=== PATIENT | female | born 1975 | race American Indian/Alaskan Native ===

== ENCOUNTER 2021-01-19 02:47 | Emergency (ER) | payer SELFPAY ==
[2021-01-19 03:13] VITALS: BP 126/69
--- NOTE | 2021-01-19 03:41 | Emergency Department Report ---
ED General Adult HPI - General Chief complaint: Allergic Reaction Stated complaint: ALLERGIC REACTION Source: patient Mode of arrival: Ambulatory Limitations: No Limitations - History of Present Illness Initial comments: Patient is a 45-year-old -[place] female with a history of morbid obesity, HIV, hypertension and eczema who presents to the ED with acute exacerbation of her chronic eczematous rashes on bilateral dorsal hands and forearms with persistent itching for the last 1 week after she went on vacation and went swimming on a chlorinated pool about a week ago. Patient states that she has been using [id number] medications with no relief and that in the last 3 days she noticed that the rashes were beginning to weep purulent discharge and she decided come to the ED for evaluation. Patient denies fever, chills, nausea, vomiting, dizziness, syncope, chest pain or shortness of breath, cough, headache, change in vision or diarrhea or abdominal pain. MD Complaint: Itchy dry ulcerated weeping rashes diffusely -: Sudden, week(s) (1) Location: upper extremity (Bilateral hands) Radiation: non-radiation Severity scale (0 -10): 7 Quality: burning, aching, sharp, other (Itchy) Consistency: constant Improves with: none Worsens with: none Associated Symptoms: denies other symptoms, rash (Diffuse bilateral dorsal hand ulcerated erythematous painful and itchy rashes). denies: cough, diaphoresis, fever/chills, headaches, loss of appetite, malaise, nausea/vomiting, seizure Treatments Prior to Arrival: none - Related Data Previous Rx's Medication Instructions Recorded Last Taken Type Elviteg/Cob/Emtri/Tenofo Disop 1 each PO DAILY #30 tablet 07/19/15 Unknown Rx [Stribild Tablet] Famotidine [Pepcid] 20 mg PO BID #60 tablet 07/19/15 Unknown Rx Metoclopramide [Reglan TAB] 10 mg PO Q6H PRN #30 tablet 07/19/15 Unknown Rx Sulfamethoxazole/Trimethoprim 1 each PO BID #20 tablet 07/19/15 Unknown Rx [Bactrim DS TAB] Valacyclovir HCl [Valtrex] 1,000 mg PO DAILY #30 tablet 07/19/15 Unknown Rx Azithromycin [Zithromax Z-PROMISE] 1 dose PO DAILY 5 Days tab 03/25/17 Unknown Rx Benzonatate [Tessalon Perles] 100 mg PO Q8HR PRN #30 capsule 03/25/17 Unknown Rx traMADoL [Ultram 50 MG tab] 50 mg PO Q6HR PRN #20 tablet 03/25/17 Unknown Rx Ibuprofen [Motrin] 800 mg PO Q8HR PRN #30 tablet 01/19/21 Unknown Rx Triamcinolone Acetonide 1 applic TP BID #1 oint...g. 01/19/21 Unknown Rx [Triamcinolone Acetonide Oint 0.5%] cephALEXin [Keflex] 500 mg PO Q6HR #40 capsule 01/19/21 Unknown Rx hydrOXYzine PAMOATE [Vistaril] 50 mg PO Q8HR PRN #30 capsule 01/19/21 Unknown Rx predniSONE [Deltasone] 60 mg PO QDAY #15 tab 01/19/21 Unknown Rx traMADoL [Ultram] 50 mg PO Q6HR PRN #12 tablet 01/19/21 Unknown Rx Allergies Allergy/AdvReac Type Severity Reaction Status Date / Time aspirin Allergy Anaphylaxis Verified 01/19/21 03:08 ED Review of Systems ROS: Stated complaint: ALLERGIC REACTION Other details as noted in HPI Constitutional: denies: chills, fever Eyes: denies: eye pain, eye discharge, vision change ENT: denies: ear pain, throat pain Respiratory: denies: cough, shortness of breath, wheezing Cardiovascular: denies: chest pain, palpitations Endocrine: no symptoms reported Gastrointestinal: denies: abdominal pain, nausea, vomiting, diarrhea Genitourinary: denies: urgency, dysuria, discharge Musculoskeletal: arthralgia (Bilateral hand pain due to itchy mild erythematous ulcerated weeping rashes). denies: back pain, joint swelling Skin: rash (Mild erythematous dry itchy ulcerated rashes with discharge). denies: lesions Neurological: denies: headache, weakness, paresthesias Psychiatric: denies: anxiety, depression Hematological/Lymphatic: denies: easy bleeding, easy bruising ED Past Medical Hx - Past Medical History Hx Hypertension: Yes Hx HIV: Yes Additional medical history: PCP; eczema - Surgical History Additional Surgical History: FIBROIDS, TUBAL LIGATION - Social History Smoking Status: Current Every Day Smoker Substance Use Type: None - Medications Home Medications: Home Medications Medication Instructions Recorded Confirmed Last Taken Type Elviteg/Cob/Emtri/Tenofo Disop 1 each PO DAILY #30 tablet 07/19/15 Unknown Rx [Stribild Tablet] Famotidine [Pepcid] 20 mg PO BID #60 tablet 07/19/15 Unknown Rx Metoclopramide [Reglan TAB] 10 mg PO Q6H PRN #30 tablet 07/19/15 Unknown Rx Sulfamethoxazole/Trimethoprim 1 each PO BID #20 tablet 07/19/15 Unknown Rx [Bactrim DS TAB] Valacyclovir HCl [Valtrex] 1,000 mg PO DAILY #30 tablet 07/19/15 Unknown Rx Azithromycin [Zithromax Z-PROMISE] 1 dose PO DAILY 5 Days tab 03/25/17 Unknown Rx Benzonatate [Tessalon Perles] 100 mg PO Q8HR PRN #30 capsule 03/25/17 Unknown Rx traMADoL [Ultram 50 MG tab] 50 mg PO Q6HR PRN #20 tablet 03/25/17 Unknown Rx Ibuprofen [Motrin] 800 mg PO Q8HR PRN #30 tablet 01/19/21 Unknown Rx Triamcinolone Acetonide 1 applic TP BID #1 oint...g. 01/19/21 Unknown Rx [Triamcinolone Acetonide Oint 0.5%] cephALEXin [Keflex] 500 mg PO Q6HR #40 capsule 01/19/21 Unknown Rx hydrOXYzine PAMOATE [Vistaril] 50 mg PO Q8HR PRN #30 capsule 01/19/21 Unknown Rx predniSONE [Deltasone] 60 mg PO QDAY #15 tab 01/19/21 Unknown Rx traMADoL [Ultram] 50 mg PO Q6HR PRN #12 tablet 01/19/21 Unknown Rx ED Physical Exam - General Limitations: No Limitations General appearance: alert, in no apparent distress - Head Head exam: Present: atraumatic, normocephalic, normal inspection - Eye Eye exam: Present: normal appearance, PERRL, EOMI Pupils: Present: normal accommodation - ENT ENT exam: Present: normal exam, normal orophraynx, mucous membranes moist, TM's normal bilaterally, normal external ear exam - Neck Neck exam: Present: normal inspection, full ROM - Respiratory Respiratory exam: Present: normal lung sounds bilaterally. Absent: respiratory distress, wheezes, rales, chest wall tenderness, accessory muscle use, prolonged expiratory - Cardiovascular Cardiovascular Exam: Present: regular rate, normal rhythm, normal heart sounds. Absent: systolic murmur, diastolic murmur, rubs, gallop - GI/Abdominal GI/Abdominal exam: Present: soft, normal bowel sounds. Absent: tenderness, guarding, rebound, hyperactive bowel sounds, hypoactive bowel sounds, organomegaly - Extremities Exam Extremities exam: Present: normal inspection, full ROM, tenderness (Palpable moderately tender bilateral dorsal hand and forearm pain due to mildly erythematous ulcerated maculopapular weeping rashes), normal capillary refill - Back Exam Back exam: Present: normal inspection, full ROM. Absent: tenderness, CVA tenderness (R), CVA tenderness (L), muscle spasm, vertebral tenderness - Neurological Exam Neurological exam: Present: alert, oriented X3, CN II-XII intact, normal gait, reflexes normal - Psychiatric Psychiatric exam: Present: normal affect, normal mood, anxious - Skin Skin exam: Present: warm, dry, intact, rash (Mild erythematous ulcerated weeping rashes with localized tenderness on bilateral dorsal hands and forearms), erythema ED Course Vital Signs 01/19/21 01/19/21 03:11 03:12 Temperature 98.1 F Pulse Rate 95 H Blood Pressure 126/69 O2 Sat by Pulse 98 Oximetry ED Medical Decision Making - Medical Decision Making This is a 45-year-old -[place] female with a history of morbid obesity, HIV, hypertension and eczema who presents to the ED with acute exacerbation of her chronic eczematous rashes on bilateral dorsal hands and forearms with persistent itching for the last 1 week after she went on vacation and went swimming on a chlorinated pool about a week ago. Patient states that she has been using [id number] medications with no relief and that in the last 3 days she noticed that the rashes were beginning to weep purulent discharge and she decided come to the ED for evaluation. In the ED, patient is alert and oriented x3 and is not in any distress. Patient was treated for pain in the ED and on reevaluation, patient's pain is well controlled medication. Patient will discharge home on pain medications and prescription of triamcinolone acetonide ointment and was advised to follow-up with her primary care physician in 7 to 10 days for reevaluation. Patient advised return to the ED immediately if symptoms get worse. - Differential Diagnosis Eczema; cellulitis; irritant dermatitis; allergic reaction Critical care attestation.: If time is entered above; I have spent that time in minutes in the direct care of this critically ill patient, excluding procedure time. ED Disposition Clinical Impression: Chronic eczema of hand, Itching with irritation, Cellulitis of dorsum of hand Disposition: 01 HOME / SELF CARE / HOMELESS Is pt being admited?: No Does the pt Need Aspirin: No Condition: Stable Instructions: Pruritus, Eczema, Cellulitis, Adult, [id number] Additional Instructions: Take medication with food, drink plenty of fluids and follow-up with your primary care physician in 7 to 10 days for reevaluation. Return to the ED immediately if symptoms get worse. Prescriptions: predniSONE [Deltasone] 60 mg PO QDAY #15 tab cephALEXin [Keflex] 500 mg PO Q6HR #40 capsule Ibuprofen [Motrin] 800 mg PO Q8HR PRN #30 tablet PRN Reason: Pain , Severe (7-10) Triamcinolone Acetonide [Triamcinolone Acetonide Oint 0.5%] 1 applic TP BID #1 oint...g. traMADoL [Ultram] 50 mg PO Q6HR PRN #12 tablet PRN Reason: Pain hydrOXYzine PAMOATE [Vistaril] 50 mg PO Q8HR PRN #30 capsule PRN Reason: Itching Referrals: [facility] [Provider Group] - 3-5 Days Forms: Work/School Release Form(ED) Time of Disposition: 03:42 Print Language: KINYARWANDA
[2021-01-19] MEDS: IBUPROFEN 600 MG TAB PO ONE (04:16)
[2021-01-19] MEDS: ACETAMINOPHEN 500 MG TAB PO ONE (04:16)
[2021-01-19] MEDS: hydrOXYzine PAMOATE 25 MG CAP PO ONE (04:16)
[2021-01-19] MEDS: predniSONE 20 MG TAB PO ONE (04:16)
== END 2021-01-19 04:21 | disposition home or self-care (01) ==
LOC: ED 02:47
DX: L30.9 Dermatitis, unspecified (principal); L29.9 Pruritus, unspecified; L03.114 Cellulitis of left upper limb; L03.113 Cellulitis of right upper limb; I10 Essential (primary) hypertension; F17.200 Nicotine dependence, unspecified, uncomplicated; Z88.8 Allergy status to other drugs, medicaments and biological substances; Z79.899 Other long term (current) drug therapy; Z21 Asymptomatic human immunodeficiency virus [HIV] infection status; Z98.890 Other specified postprocedural states; Z98.51 Tubal ligation status
CPT/HCPCS: 99282; J7512; Q0177

== ENCOUNTER 2021-02-17 20:20 | Emergency (ER) | payer SELFPAY ==
[2021-02-17] MEDS ORDERED: SODIUM CHLORIDE 0.9% 1000 ML 1,000 ML IV ONE (20:41)
[2021-02-17] MEDS ORDERED: INSULIN REGULAR, HUMAN 100 UNITS/1 ML IV ONE (20:41)
--- NOTE | 2021-02-17 20:51 | Emergency Department Report ---
ED General Adult HPI - General Chief complaint: Hyperglycemia Stated complaint: HIGH BS Time Seen by Provider: 02/17/21 20:41 Source: patient Mode of arrival: Ambulatory Limitations: No Limitations - History of Present Illness Initial comments: Patient presents due to elevated blood sugar. 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 She came here for evaluation. She states that she thought she had diabetes because recently she has noticed polyuria and polydipsia. She states that she does not eat well. She un derstands what is going on. She works in the healthcare setting. She denies any recent chest pain or back pain. She states that several weeks ago, she had a skin infection. She thinks that she has a yeast infection currently. She believes that those are related to the diabetes. There is no family history of diabetes. She admits that she stopped drinking soft drinks recently. She still drinks lots of juice. - Related Data Previous Rx's Medication Instructions Recorded Last Taken Type Elviteg/Cob/Emtri/Tenofo Disop 1 each PO DAILY #30 tablet 07/19/15 Unknown Rx [Stribild Tablet] Famotidine [Pepcid] 20 mg PO BID #60 tablet 07/19/15 Unknown Rx Metoclopramide [Reglan TAB] 10 mg PO Q6H PRN #30 tablet 07/19/15 Unknown Rx Sulfamethoxazole/Trimethoprim 1 each PO BID #20 tablet 07/19/15 Unknown Rx [Bactrim DS TAB] Valacyclovir HCl [Valtrex] 1,000 mg PO DAILY #30 tablet 07/19/15 Unknown Rx Ibuprofen [Motrin] 800 mg PO Q8HR PRN #30 tablet 01/19/21 Unknown Rx Triamcinolone Acetonide 1 applic TP BID #1 oint...g. 01/19/21 Unknown Rx [Triamcinolone Acetonide Oint 0.5%] hydrOXYzine PAMOATE [Vistaril] 50 mg PO Q8HR PRN #30 capsule 01/19/21 Unknown Rx glyBURIDE [Glyburide] 1.25 mg PO DAILY #30 tablet 02/17/21 Unknown Rx Allergies Allergy/AdvReac Type Severity Reaction Status Date / Time aspirin Allergy Anaphylaxis Verified 01/19/21 03:08 ED Review of Systems ROS: Stated complaint: HIGH BS Other details as noted in HPI Comment: All other systems reviewed and negative Constitutional: denies: fever Eyes: denies: eye pain ENT: denies: throat pain Respiratory: denies: cough Cardiovascular: denies: chest pain Endocrine: increased thirst, increased urine. denies: unexplained weight loss Gastrointestinal: denies: abdominal pain Genitourinary: denies: dysuria Musculoskeletal: denies: back pain Neurological: denies: headache Hematological/Lymphatic: denies: easy bruising ED Past Medical Hx - Past Medical History Previous Medical History?: Yes Hx Hypertension: Yes Hx HIV: Yes Additional medical history: PCP; eczema - Surgical History Past Surgical History?: Yes Additional Surgical History: FIBROIDS, TUBAL LIGATION - Family History Family history: hypertension - Social History Smoking Status: Current Every Day Smoker (We discussed tobacco cessation x3 minutes) Substance Use Type: None - Medications Home Medications: Home Medications Medication Instructions Recorded Confirmed Last Taken Type Elviteg/Cob/Emtri/Tenofo Disop 1 each PO DAILY #30 tablet 07/19/15 Unknown Rx [Stribild Tablet] Famotidine [Pepcid] 20 mg PO BID #60 tablet 07/19/15 Unknown Rx Metoclopramide [Reglan TAB] 10 mg PO Q6H PRN #30 tablet 07/19/15 Unknown Rx Sulfamethoxazole/Trimethoprim 1 each PO BID #20 tablet 07/19/15 Unknown Rx [Bactrim DS TAB] Valacyclovir HCl [Valtrex] 1,000 mg PO DAILY #30 tablet 07/19/15 Unknown Rx Ibuprofen [Motrin] 800 mg PO Q8HR PRN #30 tablet 01/19/21 Unknown Rx Triamcinolone Acetonide 1 applic TP BID #1 oint...g. 01/19/21 Unknown Rx [Triamcinolone Acetonide Oint 0.5%] hydrOXYzine PAMOATE [Vistaril] 50 mg PO Q8HR PRN #30 capsule 01/19/21 Unknown Rx glyBURIDE [Glyburide] 1.25 mg PO DAILY #30 tablet 02/17/21 Unknown Rx ED Physical Exam - General Limitations: No Limitations, Other (Pulse ox is noted and normal. Is not hypoxic.) General appearance: alert, in no apparent distress, obese - Head Head exam: Present: atraumatic, normocephalic, normal inspection - Eye Eye exam: Present: normal appearance, EOMI. Absent: scleral icterus - ENT ENT exam: Present: mucous membranes dry, normal external ear exam - Neck Neck exam: Present: normal inspection. Absent: meningismus - Respiratory Respiratory exam: Present: normal lung sounds bilaterally. Absent: respiratory distress - Cardiovascular Cardiovascular Exam: Present: tachycardia, normal heart sounds - GI/Abdominal GI/Abdominal exam: Present: soft. Absent: distended, tenderness - Extremities Exam Extremities exam: Present: normal capillary refill. Absent: calf tenderness - Back Exam Back exam: Absent: CVA tenderness (R), CVA tenderness (L) - Neurological Exam Neurological exam: Present: alert, oriented X3, CN II-XII intact. Absent: motor sensory deficit - Psychiatric Psychiatric exam: Present: normal affect, normal mood - Skin Skin exam: Present: warm, dry ED Course Vital Signs 02/17/21 02/17/21 02/17/21 20:24 20:49 21:00 Temperature 98.8 F Pulse Rate 117 H 99 H Respiratory 18 22 Rate Blood Pressure 196/124 145/100 O2 Sat by Pulse 99 97 98 Oximetry 02/17/21 21:16 Temperature Pulse Rate 99 H Respiratory 30 H Rate Blood Pressure 167/111 O2 Sat by Pulse 98 Oximetry - Reevaluation(s) Reevaluation #1: 02/17/21 20:51 IV labs ordered. Accu-Chek was noted. Insulin was ordered. Reevaluation #2: 02/17/21 22:02 Insulin and fluids have just been started. Labs have been reviewed. ED Medical Decision Making - Lab Data Result diagrams: 02/17/21 20:48 02/17/21 20:48 Critical Care Time: No Critical care attestation.: If time is entered above; I have spent that time in minutes in the direct care of this critically ill patient, excluding procedure time. ED Disposition Clinical Impression: Diabetes mellitus, new onset Disposition: HOME / SELF CARE / HOMELESS Is pt being admited?: No Condition: Stable Instructions: Type 2 Diabetes Mellitus, Diagnosis, Adult, Tips for Eating Away From Home If You Have Diabetes, Type 2 Diabetes Mellitus, Self Care, Adult, Carbohydrate Counting for Diabetes Mellitus, Adult, Diabetes Mellitus Type 2 in Adults (ED) Additional Instructions: Drink plenty water. Avoid carbohydrates. Check your sugars and take your medicine. Follow-up with your regular doctor for recheck and further management. Prescriptions: glyBURIDE [Glyburide] 1.25 mg PO DAILY #30 tablet Referrals: PRIMARY [facility] [Referring] - 3-5 Days MELI LANG MD [Staff Physician] - 3-5 Days
[2021-02-17 21:10] LABS: Hematocrit 47.6 % (30.3-42.9); Mean Corpuscular HGB Conc 34 % (30-34); Mean Corpuscular Volume 94 fl (79-97); Platelet Count 241 K/mm3 (140-440); Red Blood Count 5.07 M/mm3 (3.65-5.03); Red Cell Distribution Width 13.6 % (13.2-15.2)
[2021-02-17 21:20] VITALS: BP 167/111
[2021-02-17 21:22] LABS: Bilirubin,Urine NEG (Negative); Blood,Urine LG (Negative); Color,Urine Straw (Yellow); Mucus,Urine FEW /HPF; Protein,Urine <15 mg/dL mg/dL (Negative); Urobilinogen,Urine < 2.0 mg/dL (<2.0)
[2021-02-17 21:24] LABS: BUN/Creatinine Ratio 19; Blood Urea Nitrogen 19 mg/dL (7-17); Calcium 9.8 mg/dL (8.4-10.2); Hemolysis Index 5
== END 2021-02-17 23:33 | disposition home or self-care (01) ==
LOC: ED 20:20
DX: E11.9 Type 2 diabetes mellitus without complications (principal); R35.89 Other polyuria; I10 Essential (primary) hypertension; F17.200 Nicotine dependence, unspecified, uncomplicated; Z98.51 Tubal ligation status; Z79.899 Other long term (current) drug therapy
CPT/HCPCS: 36415; 80048; 81001; 82962; 83735; 84100; 85027; 96361; 96374; 99283; J7030; J1815